=== PATIENT | female | born 1935 | race Caucasian/White ===

== ENCOUNTER → 2016-11-16 | Outpatient (CLI) | payer MEDICARE ==
[~2016-11-16] MED LIST: ALPRAZOLAM0.25 MG PO; ASA CHILDREN'S81 MG PO; BACLOFEN10 MG PO; CALCIUM600 MG PO; CARAFATE DPS1 GM PO; CENTRUM SILVER1 EAC1 PO; COREG DPS6.25 MG PO; FISH OIL 1,2001 EACH PO; HYDROCHLOROTHIA25 MG PO; LEVEMIR100 UNIT/1 SQ; LIPITOR DPS20 MG PO; METFORMIN HCL1000 M1 PO; PROTONIX40 MG PO; SLO NIACIN DPS500 MG PO; SYNTHROID125 MCG PO; TYLENOL DPS325 MG PO; ULTRAM DPS50 MG PO; VASOTEC DPS20 MG PO; VITAMIN D-32000 UNI1 PO; XARELTO10 MG PO
== END | disposition home or self-care (01) ==
LOC: PTH.S 09:47
DX: Z01.818 Encounter for other preprocedural examination (principal); I10 Essential (primary) hypertension; Z79.899 Other long term (current) drug therapy

== ENCOUNTER 2016-11-27 09:43 | Inpatient (IN) | payer MEDICARE ==
[~2016-11-27] VITALS: Ht 162.6 cm; Wt 66.5 kg
[2016-11-29] MEDS ORDERED: SYNTHROID125 MCG PO (16:08)
[2016-11-29] MEDS ORDERED: VASOTEC DPS20 MG PO (16:09)
[2016-11-29] MEDS ORDERED: LIPITOR DPS20 MG PO (16:09)
[2016-11-29] MEDS ORDERED: HYDROCHLOROTHIA25 MG PO (16:09)
[2016-11-29] MEDS ORDERED: ASA CHILDREN'S81 MG PO (16:09)
[2016-11-29] MEDS ORDERED: CENTRUM SILVER1 EAC1 PO (16:10)
[2016-11-29] MEDS ORDERED: VITAMIN D-32000 UNI1 PO (16:10)
[2016-11-29] MEDS ORDERED: SLO NIACIN DPS500 MG PO (16:10)
[2016-11-29] MEDS ORDERED: CALCIUM600 MG PO (16:10)
[2016-11-29] MEDS ORDERED: LEVEMIR100 UNIT/1 SQ (16:11)
[2016-11-29] MEDS ORDERED: METFORMIN HCL1000 M1 PO (16:11)
[2016-11-29] MEDS ORDERED: FISH OIL 1,2001 EACH PO (16:11)
[2016-11-29] MEDS ORDERED: TYLENOL DPS325 MG PO (16:12)
[2016-11-29] MEDS ORDERED: XARELTO10 MG PO (16:12)
[2016-11-29] MEDS ORDERED: ULTRAM DPS50 MG PO (16:12)
[2016-11-29] MEDS ORDERED: BACLOFEN10 MG PO (16:12)
[2016-11-29] MEDS ORDERED: COREG DPS6.25 MG PO (16:12)
--- NOTE | 2016-12-11 07:45 | OR ---
ADMIT: 11/27/2016 RM/LOC: [address] [facility] MR#: [id number] [facility]#: [id number] [address] [address] [place] [address] Operative/Delivery Room Report SEX: F AGE: 81 : 1935 SURGERY DATE: 11/27/2016 SURGEON: Sawyer Cárdenas MD PREOPERATIVE DIAGNOSIS: Right hip degenerative disease. POSTOPERATIVE DIAGNOSIS: Right hip degenerative disease. PROCEDURE: 1. Right anterior total hip arthroplasty. 2. Intra-articular block. WELDER/INSTALLER: Nir Hernandez PA-C. ANESTHESIA: Spinal. COMPLICATIONS: None. BLOOD LOSS: 300 mL. COMPONENTS: 1. A 52 mm Gription Fairbanks cup. 2. A neutral 36 mm AltrX liner. 3. Hole eliminator. 4. A 12 mm standard offset Corail stem. 5. A 1.5 x 36 mm metal head. DESCRIPTION OF PROCEDURE: The patient was taken to the operating room. The correct hip was identified and marked in the preop holding area. The preoperative leg lengths were documented. The patient received a spinal anesthetic. At that point, the patient had traction boots applied. The patient was placed on the [facility] operative table. A perfect fluoroscopic AP pelvis was obtained along with a perfect AP of the operative hip and printed for preoperative templating purposes. At that point, the right hip was prepped and draped in a standard fashion and an anterior approach was performed. An incision was made lateral and inferior to the anterior superior iliac spine extending distally. Dissection was carried through subcutaneous tissue down to the tensor fascia. The fibers of the tensor fascia were identified in oblique fashion. The tensor fascia was then opened up along its muscle fibers. An Allis clamp was placed on the anterior fascial border. The tensor muscle itself was then swept off with blunt dissection and retracted posteriorly. At that point, the rectus was elevated off the anterior hip capsule. The lateral circumflex vessels were identified and cauterized. A Cobra retractor was placed above the superior femoral neck to retract the tensor posteriorly. The rest of the rectus was elevated off the anterior hip capsule and a second retractor was placed around the medial femoral neck. An L-shaped capsulotomy was performed through the hip capsule down to the intertrochanteric line and extended along the intertrochanteric line to the level of the lesser trochanter. Tag stitches were placed in the medial and ADMIT: 11/27/2016 RM/LOC: [address] [facility] MR#: [id number] [address] [address] [address] [place] [address] Operative/Delivery Room Report SEX: F AGE: 81 : 1935 lateral border of the hip capsule. We also released the superior hip capsule out of the trochanteric shoulder region. At that point, we placed our Cobra retractors in an intra-articular fashion for improved exposure to complete our capsular releases intra-articularly. A femoral neck cut was then made based on templating using the trochanteric shoulder as a bony landmark. We then externally rotated the hip 20 degrees for improved exposure and removed the femoral head from the acetabulum with no undue difficulty. Once the femoral head was removed, we again completed our capsular release around the inferior femoral neck to the level of lesser trochanter, released the superior capsule off the greater trochanteric shoulder in its entirety. We then placed slight traction on the femur in 20 degrees external rotation and placed a blunt-tip Cobra retractor over the anterior acetabular border. A second blunt Cobra was placed around the posterior acetabular border. All the remaining labrum was excised and an episiotomy performed to the inferior capsule to improve exposure. We cauterized the fovea and removed any remaining tissue in the depth of the acetabulum. We sequentially reamed the acetabulum under direct visualization up to a 51 mm size reamer and impacted a 52 mm Gription Fairbanks cup. We elected to use a 36 mm size acetabular component. We put the acetabular component on a curved basin finish operator tig welder and placed it within the depths of the acetabulum. At that point we removed all retractors; brought in fluoroscopy; and again obtained a perfect AP of the pelvis followed by a perfect AP of the hip. Under fluoroscopic guidance, we impacted the acetabular component in approximately 45 degrees of inclination and 20 degrees of anteversion. We had an excellent press fit and no supplemental screws were required. Any peripheral osteophytes were circumferentially removed around the acetabular component. A hole eliminator was placed in the acetabular component and a neutral 36 mm AltrX liner was impacted within the acetabular component. A partial intra-articular block with Exparel was performed at this point in time. Once our acetabular preparation was completed, all the acetabular retractors were removed. We then exposed the femur by rotating it into neutral position and taking all traction off the femur. A femoral elevating hook was placed posterior to the trochanteric ridge. The foot was dropped down to 45 degrees and the leg maximally externally rotated no undue tension. We made sure our inferior capsular release was complete and placed a #1 retractor over the tip of the trochanter. Any remaining capsule was released off the tip of the trochanter and the piriformis tendon and a conjoined tendon were also released for exposure. At that point, you could feel the femur give, and we were able to elevate it up and out of the wound. The femur was externally rotated to approximately 120 degrees and the foot dropped to the floor as the leg was adducted. The trochanteric elevating hook was manually pulled in the anterior lateral direction as the elevating bar was raised to support it. At that point, we had excellent femoral exposure. A Terry retractor was placed over the tip of the trochanter and a femoral neck retractor around the medial calcar region to improve exposure. The proximal femur was opened with a box osteotome and a canal finder was used to identify the femoral canal. The proximal femur was sequentially broached up to a 12 mm Corail broach. We did over ream the distal canal to be sure we did not have a distal femoral fit. At that point, we left the broach in the canal and calcar ADMIT: 11/27/2016 RM/LOC: [address] [facility] MR#: [id number] [address] [address] [place] [address] Operative/Delivery Room Report SEX: F AGE: 81 : 1935 planed the neck. We then reduced the hip with a standard off-set femoral neck and a 1.5 x 36-mm head. All the retractors and femoral hook were removed. Using manual traction, we were able to reduce the hip into the acetabulum with no undue difficulty. A perfect fluoroscopic AP of the pelvis followed by a perfect AP of the hip was obtained and appropriate leg length and offset were confirmed. We replaced our femoral elevating hook posterior to the trochanter. A bone hook and manual traction were used to dislocate the hip, again externally rotating the femur in its entirety as the foot was dropped to the floor and leg adducted. We removed the trial components, replaced a Lovelady retractor, and a femoral neck retractor. The broach was removed and the appropriate real components opened. We then impacted a size 12 mm standard offset Corail stem down the femoral canal with excellent press-fit. We impacted a 1.5 x 36 mm metal head on the trunnion. All retractors were removed, using manual traction the hip was reduced, and again was found to be stable. A final fluoroscopic AP pelvis and AP hip was obtained to confirm appropriate leg length, offset, and component positioning. We then irrigated out the wounds thoroughly and repaired the anterior capsular structures with #5 Ti-Cron. Our intra-articular Exparel block was completed including all soft tissues. The tensor fascia was repaired with a running and interrupted 0 Vicryl suture. We closed subQ with 2-0 Vicryl and ran a subcuticular Monocryl stitch. A Prineo hip wound dressing was applied and sterile dressings applied. The patient was taken off the HANA table, transferred to a standard OR bed, and taken to the recovery room in stable condition with no complications. Sawyer Cárdenas MD/ yanique JOB #: [id number] CC: Sawyer Cárdenas MD, Attending Physician UNKNOWN, Family Physician
--- NOTE | 2016-12-11 07:45 | HP ---
ADMIT: 11/27/2016 RM/LOC: [facility] MR#: [id number] [address] [address] [place] [address] Pre-OP History and Physical SEX: F AGE: 81 : 1935 W.03 DATE OF SERVICE: CHIEF COMPLAINT: Right hip pain. HISTORY OF PRESENT ILLNESS: The patient is a 81-year-old female with longstanding history of right hip pain. Right hip pain limits her activity. She has failed conservative care. She is now being admitted for right total hip arthroplasty. PAST MEDICAL HISTORY: Past medical problems include: 1. Diabetes. 2. Hypertension. 3. Hypothyroidism. PAST SURGICAL HISTORY: Tonsillectomy. MEDICATIONS: 1. Aspirin. 2. Fish oil. 3. Vitamins. 4. Calcium. 5. Niacin. 6. Ultram. 7. Atorvastatin. 8. Levothyroxine. 9. Hydrochlorothiazide. 10.Levemir. 11.Metformin. 12.Carvedilol. 13.Enalapril. 14.Centrum. ALLERGIES: NONE. SOCIAL HISTORY: Denies any tobacco or alcohol use. REVIEW OF SYSTEMS: Negative. PHYSICAL EXAMINATION: GENERAL: A healthy-appearing female. MUSCULOSKELETAL: Walks with antalgic gait on the right lower extremity. Pain with any motion of the right hip. We can internally rotate to 0, externally rotate to 30, flex to 90. Range of motion reproduces her symptoms. DIAGNOSTIC DATA: X-rays AP, lateral, show advanced right hip arthritis. No ADMIT: 11/27/2016 RM/LOC: [facility] MR#: [id number] [address] [address] [place] [address] Pre-OP History and Physical SEX: F AGE: 81 : 1935 joint space remaining. IMPRESSION: 1. Advanced right hip degenerative joint disease. 2. Diabetes. PLAN: I talked about different options. She has failed conservative care. Plan on doing a right anterior total hip arthroplasty. She is aware of the risks, benefits, and options and agreed to proceed. She has been seen and cleared from a medical standpoint. Swayer Cárdenas MD/ yanique JOB #: [id number] CC: Sawyer Cárdenas, Attending Physician UNKNOWN, Family Physician W.03
--- NOTE | 2016-12-14 10:59 | DS ---
ADMIT: 11/27/2016 RM/LOC: [facility] MR#: [id number] [facility]#: [id number] [address] [facility] [address] [place], [place] [address] [place] [address] General Discharge Summary SEX: F AGE: 81 : 1935 ADMISSION DATE: 11/27/2016 DISCHARGE DATE: 11/28/2016 REASON FOR ADMISSION: Elective right total hip arthroplasty after failing conservative management for osteoarthritis. PREOPERATIVE DIAGNOSIS: Right hip degenerative joint disease. POSTOPERATIVE DIAGNOSIS: Right hip degenerative joint disease. PROCEDURE PERFORMED: Right anterior total hip arthroplasty. ANESTHETIC: Spinal. COMPLICATIONS: None. ESTIMATED BLOOD LOSS: 300 mL. SURGEON: Sawyer Cárdenas MD. RN CIRCULATING: Nir Hernandez PA-C. ACTIVE MEDICAL PROBLEMS: Osteoarthritis, diabetes, hypertension, hypothyroid. HOSPITAL COURSE: Julian was admitted on 11/27/2016, for elective right total hip arthroplasty, was completed successfully from a direct anterior approach by Dr. Cárdenas. There were no complications. She tolerated the procedure well. Postoperatively, did well with pain controlled with use of intraoperative pain injection cocktail as well as oral analgesics. Participated with physical therapy becoming proficient in her home exercise program in her short hospital stay. The drain was used and it was pulled on postoperative day #1, with minimal output. DVT prophylaxis with the use of Xarelto per primary care. She did as anticipated experienced mild acute surgical blood-loss anemia, hemoglobin dropped to 10.6, but remained hemodynamically stable and did not require transfusion. She is comfortable doing well with her therapy and ready for discharge on postoperative day #1, with plans for continued home exercise program. DISCHARGE MEDICATIONS: 1. Levothyroxine 100 mcg daily. 2. Enalapril 20 mg daily. 3. Hydrochlorothiazide 25 mg daily. 4. Atorvastatin 20 mg daily. 5. Aspirin 81 mg daily. 6. Multivitamin daily. 7. Vitamin D3 of 2000 units daily. 8. Calcium 600 mg daily. ADMIT: 11/27/2016 RM/LOC: [facility] MR#: [id number] 26[address] [facility] [address] [place] [address] [place] [address] General Discharge Summary SEX: F AGE: 81 : 1935 9. Niacin 500 mg daily. 10.Fish oil daily. 11.Metformin 1000 mg daily. 12.Levemir 10 units twice daily. 13.Carvedilol 6.25 mg twice daily. 14.Baclofen 10 mg three times daily. 15.Xarelto 10 mg daily. 16.Tylenol 650 mg q.4 hours. 17.Ultram 50 mg q.6 hours. DISCHARGE INSTRUCTIONS: Home exercise program. Follow up in the orthopedic office in 2 weeks for wound check, 6 weeks with x-rays. Nir Hernandez PA-C / Sawyer Cárdenas MD / yanique JOB #: [id number] CC: Sawyer Cárdenas MD, Attending Physician UNKNOWN, Family Physician
--- NOTE | 2016-12-15 06:55 | CO ---
ADMIT: 11/27/2016 RM/LOC: 519 [facility] MR#: [id number] [address] [address] [place] [address] Consultation SEX: F AGE: 81 : 1935 DATE OF CONSULTATION: 11/27/2016 ATTENDING PHYSICIAN: Sawyer Cárdenas CONSULTING PHYSICIAN: Julio Cesar Javier MD REASON FOR CONSULTATION: Medical management. HISTORY OF PRESENT ILLNESS: Julian is a very pleasant 81-year-old female with past medical history of diabetes, hyperlipidemia, hypertension, and hypothyroidism, has had ongoing significant pain in her right hip over the last few months that is extensively affecting her life. She has been found to have severe osteoarthritic changes in the hip. She has decided to undergo hip arthroplasty with Dr. Cárdenas. The patient was a low risk for this procedure and underwent the procedure this morning without any significant problems. Postoperatively she is doing well, has some pain but overall well controlled. She is eating and has really no complaints for me at this point. We have been asked to follow along for medical management. PAST MEDICAL HISTORY: Includes diabetes mellitus type 2, hyperlipidemia, hypertension, hypothyroidism, osteoarthritis of the right hip. PAST SURGICAL HISTORY: Cholecystectomy. ALLERGIES: AMOXICILLIN, CODEINE, AND IODINE. MEDICATIONS: Please refer hospital record. SOCIAL HISTORY: No alcohol, drug, or tobacco use. FAMILY HISTORY: Noncontributory. REVIEW OF SYSTEMS: A 10-point review of systems obtained, per HPI otherwise negative. PHYSICAL EXAMINATION: VITAL SIGNS: Within normal limits and stable. HEENT: Pupils equal, round, and reactive. Extraocular muscles intact. Throat clear. Trachea midline. HEART: Regular rate and rhythm. No murmurs, rubs, or gallops. LUNGS: Clear to auscultation bilaterally. No wheezes or crackles. ABDOMEN: Soft, nontender, and nondistended. No organomegaly. EXTREMITIES: Without significant edema. Looked at her incision on her right hip; clean, dry, and intact. LABORATORY DATA: Reviewed, normal. ASSESSMENT AND PLAN: This is a 81-year-old female with: 1. Postop day 0, status post right total hip arthroplasty. 2. Diabetes mellitus type 2. ADMIT: 11/27/2016 RM/LOC: 519 [facility] MR#: [id number] [address] [address] [place] [address] Consultation SEX: F AGE: 81 : 1935 3. Hyperlipidemia. 4. Hypertension. 5. Hypothyroidism. 6. Osteoarthritis. PLAN: We will plan to continue with all her home medications. She is doing quite well. Xarelto for DVT prophylaxis for 35 days. Anticipate discharge home later tomorrow afternoon or possibly Wednesday. She is quite active and could do well at home with just some help there and physical therapy. Thank you Dr. Cárdenas, appreciate your care for Julian and for allowing us to follow along with her during this postoperative course. Julio Cesar Javier MD/ yanique JOB #: [id number] CC: Sawyer Cárdenas, Attending Physician UNKNOWN, Family Physician
[2016-12-16] MEDS ORDERED: ALPRAZOLAM0.25 MG PO (14:50)
[2016-12-16] MEDS ORDERED: PROTONIX40 MG PO (14:50)
[2016-12-16] MEDS ORDERED: CARAFATE DPS1 GM PO (14:50)
--- NOTE | 2016-12-21 07:05 | DS ---
ADMIT: 11/27/2016 RM/LOC: 519 [facility] MR#: [id number] [facility]#: [id number] [address] [address] [place] [address] General Discharge Summary SEX: F AGE: 81 : 1935 ADMISSION DATE: 11/27/2016 DISCHARGE DATE: 11/28/2016 REASON FOR ADMISSION: Elective right total hip arthroplasty after failing conservative care. PAST MEDICAL HISTORY: Includes diabetes mellitus type 2, hyperlipidemia, hypertension, hypothyroidism, and osteoarthritis of the right hip. PREOPERATIVE DIAGNOSIS: Right hip degenerative joint disease. POSTOPERATIVE DIAGNOSIS: Right hip degenerative joint disease. PROCEDURES PERFORMED: 1. Right anterior total hip arthroplasty. 2. Intra-articular block. SURGEON: Sawyer Cárdenas MD CRIBBER: Nir Hernandez PA-C ANESTHESIA: Spinal. COMPLICATIONS: None. BLOOD LOSS: 300 mL. HOSPITAL COURSE: The patient was admitted on 11/27/2016, for elective right anterior total hip arthroplasty done without any complications by Dr. Cárdenas. The patient tolerated the procedure well postoperative day #1, her pain was well controlled. She was participating well with physical therapy and denies any other complaints other than a sore hip. As expected, she did suffer from acute blood loss anemia. Her hemoglobin dropped to 10.6 on 11/28/2016, but she remained hemodynamically stable and did not require blood transfusion. By postoperative day #1, she was safe, stable, and ready for discharge home with plans for outpatient physical therapy exercises. DISCHARGE MEDICATIONS: 1. Levothyroxine 100 mcg every day. 2. Enalapril 20 mg every day. 3. Hydrochlorothiazide 25 mg every day. 4. Atorvastatin 20 mg every day. 5. Aspirin 81 mg every day. 6. Centrum Silver multivitamin every day. 7. Vitamin D3, 2000 units every day. 8. Calcium 600 mg every day. 9. Niacin 500 mg every day. 10.Fish oil 1290 mg every day. ADMIT: 11/27/2016 RM/LOC: 519 [facility] MR#: [id number] [address] [address] [place] [address] General Discharge Summary SEX: F AGE: 81 : 1935 11.Metformin 1000 mg every day. 12.Levemir 10 units twice daily. 13.Carvedilol 6.25 mg twice daily. 14.Baclofen 10 mg 3 times daily. 15.Xarelto 10 mg everyday for 35 days. 16.Tylenol 650 mg every 6 hours as needed for pain. 17.Ultram 50 mg 1 to 2 tablets every 6 hours as needed for pain. DISCHARGE INSTRUCTIONS: The patient was discharged home with plans for outpatient physical therapy exercises per total hip arthroplasty protocol. Follow up in the orthopedic office in 2 weeks for wound check, in 6 weeks with x-ray. Follow up with primary care as directed. BARBARA Medina / Sawyer Cárdenas MD / yanique JOB #: [id number] CC: Sawyer Cárdenas MD, Attending Physician UNKNOWN, Family Physician
== END 2016-11-28 16:45 | disposition home or self-care (01) | DRG 470 ==
LOC: WOR 09:43 → 5MS 15:33
PROVIDERS: ADMIT Orthopaedic Surgery
PROC: 0SR902A Replacement of Right Hip Joint with Metal on Polyethylene Synthetic Substitute, Uncemented, Open Approach (ICD-10-PCS; principal; 2016-11-27)
DX: M16.11 Unilateral primary osteoarthritis, right hip (principal); E11.9 Type 2 diabetes mellitus without complications; I10 Essential (primary) hypertension; D62 Acute posthemorrhagic anemia; E78.5 Hyperlipidemia, unspecified; E03.9 Hypothyroidism, unspecified; Z79.82 Long term (current) use of aspirin; Z79.84 Long term (current) use of oral hypoglycemic drugs; Z79.4 Long term (current) use of insulin